=== PATIENT | female | born 1960 | race Caucasian/White ===

== ENCOUNTER 2024-03-23 22:49 | Emergency (ER) | payer SELFPAY ==
[~2024-03-23] VITALS: Ht 175.3 cm; Wt 72.0 kg
[2024-03-23] MEDS ORDERED: KETOROLAC TROMETHAMINE 15 MG/ML SDV IM ONE (23:40)
[2024-03-23] MEDS ORDERED: DEXAMETHASONE 2 MG/TAB TAB PO ONE (23:40)
[2024-03-24] MEDS ORDERED: MEDICAL MARIJUANA (00:04)
[2024-03-24] MEDS ORDERED: MELOXICAM7.5 MG PO (02:59)
[2024-03-24] MEDS ORDERED: HYDROCO/APAP1 TA9 PO (02:59)
[2024-03-24] MEDS ORDERED: MEDDOSEPAK PO (02:59)
[2024-03-24 03:08] VITALS: BP 148/76
== END 2024-03-24 03:14 | disposition home or self-care (01) | DRG 554 ==
LOC: ED 22:49
DX: M17.12 Unilateral primary osteoarthritis, left knee (principal); M06.9 Rheumatoid arthritis, unspecified